=== PATIENT | male | born 1935 | race Caucasian/White ===

== ENCOUNTER 2020-06-16 05:35 | Observation (INO) | payer MEDICARE ==
[~2020-06-16] VITALS: Ht 185.4 cm; Wt 89.5 kg
[~2020-06-16 05:35] MED LIST: AMLO-150 PO; ASPI-496 PO; FINA5TAB4 PO; FISH OIL PO; GLUC15006 PO; IRBE300T8 PO; METO50TA82 PO; MULT1TAB13 PO; MV-M1TAB16 PO; PIOG15TA22 PO; POTASSIUM PO
[2020-06-16] MEDS ORDERED: SODIUM CHLORIDE 0.9% 1,000 ML IV SCH (06:11)
[2020-06-16 06:22] VITALS: BP 158/77
[2020-06-16] MEDS ORDERED: PLEASE ENTER HEIGHT AND WEIGHT MC SCH (06:30)
[2020-06-16] MEDS ORDERED: METO25TA91 PO (06:34)
[2020-06-16] MEDS ORDERED: TORS5TAB4 PO (06:34)
[2020-06-16] MEDS ORDERED: ATOR40TA PO (06:40)
[2020-06-16] MEDS ORDERED: [UNRECOGNIZED DRUG - OTHER] PO (06:40)
[2020-06-16] MEDS ORDERED: SPIR25TA5 PO (06:40)
[2020-06-16] MEDS ORDERED: CHOL100011 PO (06:40)
[2020-06-16] MEDS ORDERED: VALS40TA2 PO (06:40)
[2020-06-16 07:09] LABS: BASOPHILS # (AUTO) 0.04 x10^3/uL (0-0.1); BASOPHILS % (AUTO) 1 % (0-1); EOSINOPHILS # (AUTO) 0.16 x10^3/uL (0-0.4); EOSINOPHILS % (AUTO) 2 % (1-7); LYMPHOCYTES # (AUTO) 0.98 x10^3/uL (1-3.4); LYMPHOCYTES % (AUTO) 13 % (22-44); MD NO; MEAN CORPUSCULAR HEMOGLOBIN 30.6 pg (27.5-34.5); MEAN CORPUSCULAR HGB CONC 33.1 g/dL (33.2-36.2); MEAN CORPUSCULAR VOLUME 92.6 fL (81-97); MEAN PLATELET VOLUME 7.2 fL (7.4-10.4); MONOCYTES # (AUTO) 0.55 x10^3/uL (0.2-0.8); MONOCYTES % (AUTO) 7 % (2-9); NEUTROPHILS # (AUTO) 5.77 x10^3/uL (1.8-6.8); NEUTROPHILS % (AUTO) 77 % (42-75); PLATELET COUNT 266 x10^3/uL (130-400); RED BLOOD COUNT 3.93 x10^6/uL (4.38-5.82); RED CELL DISTRIBUTION WIDTH 13.4 % (9.4-14.8)
[2020-06-16 07:20] LABS: ANION GAP 6 mmol/L (5-15); CALCIUM 9.1 mg/dL (8.5-10.1); CHLORIDE 115 mmol/L (98-107); CREATININE 2.24 mg/dL (0.7-1.3)
[2020-06-16] MEDS ORDERED: LIDOCAINE 2%, 20ML ONE (07:27)
[2020-06-16] MEDS ORDERED: FENTANYL PF 250 MCG/5ML ONE (07:27)
[2020-06-16] MEDS ORDERED: VANCOMYCIN PMX 1GM/200ML 200 ML ONE (07:27)
[2020-06-16] MEDS ORDERED: VANCOMYCIN 500 MG ONE (07:27)
[2020-06-16] MEDS ORDERED: MIDAZOLAM 1 MG/ML, 5ML ONE (07:27)
[2020-06-16] MEDS ORDERED: FINASTERIDE 5 MG TABLET PO SCH ×2 (09:00→21:00)
[2020-06-16] MEDS ORDERED: HOLD MEDICATION MC PRN (09:00)
[2020-06-16] MEDS: SPIRONOLACTONE 25 MG TABLET PO SCH ×2 (09:00→19:43)
[2020-06-16] MEDS: SODIUM CHLORIDE FLUSH 10ML SYR IVF SCH ×2 (09:00→19:44)
[2020-06-16] MEDS ORDERED: ACETAMINOPHEN 325 MG TABLET PO PRN (09:00)
[2020-06-16] MEDS: METOPROLOL SUCCINATE 100 MG TAB.ER.24H PO SCH (09:00)
[2020-06-16] MEDS ORDERED: HYDROcodone/APAP 5/325 TABLET PO PRN (09:00)
[2020-06-16] MEDS: ASPIRIN 81 MG TABLET EC PO SCH (09:00)
[2020-06-16 12:17] VITALS: BP 123/72
[2020-06-16 19:01] VITALS: BP 128/74
[2020-06-16] MEDS ORDERED: ATORVASTATIN 40 MG TABLET PO SCH (21:00)
[2020-06-17 01:29] VITALS: BP 135/74
[2020-06-17] MEDS ORDERED: ACET325T26 PO (07:29)
[2020-06-17 07:31] VITALS: BP 135/72
[2020-06-17] MEDS: ASPIRIN 81 MG TABLET EC PO SCH (08:15)
[2020-06-17] MEDS: SPIRONOLACTONE 25 MG TABLET PO SCH (08:15)
[2020-06-17] MEDS: METOPROLOL SUCCINATE 100 MG TAB.ER.24H PO SCH (08:16)
[2020-06-17] MEDS: SODIUM CHLORIDE FLUSH 10ML SYR IVF SCH (08:16)
== END 2020-06-17 09:55 | disposition home or self-care (01) ==
LOC: CACL 05:35 → ORIP 08:49 → 5SO 09:00 → DCLOUNGE 06-17 09:47
PROVIDERS: ADMIT Internal Medicine Clinical Cardiac Electrophysiology; ATTEND Internal Medicine Clinical Cardiac Electrophysiology
DX: I42.8 Other cardiomyopathies (principal); G47.30 Sleep apnea, unspecified; I10 Essential (primary) hypertension; Z79.82 Long term (current) use of aspirin; Z45.02 Encounter for adjustment and management of automatic implantable cardiac defibrillator; Z79.899 Other long term (current) drug therapy; Z88.0 Allergy status to penicillin; Z95.810 Presence of automatic (implantable) cardiac defibrillator
CPT/HCPCS: 33249; 36415; 71045; 71046; 80048; 85025; 93005; 99156; 99157; C1722; C1892; C1894; C1895; G0378; J2250; J3010; J3370; J3490